=== PATIENT | male | born 1955 | race Caucasian/White ===

== ENCOUNTER 2017-11-10 16:07 | Outpatient (CLI) | payer SELFPAY ==
[2016-01-14 21:42] VITALS: BP 138/88
--- NOTE | 2017-11-10 18:45 | Diagnostic Imaging Report ---
SHU DEWITT [facility] [address] [facility] [address] [id number] Report Submission Date: Nov 10, 2017 4:54:23 PM PADDING GLUER Patient Study Name: RAFAEL MCKEON Date: Nov 10, 2017 4:17:23 PM PADDING GLUER Modality Type: DX Gender: M Description: UPPER EXTREMITY : 59 Institution: [facility] Physician: SHU DEWITT Examination: Plain film left elbow History: LT ELBOW, PAIN AND SWELLING IN LEFT ELBOW X9 DAYS, PT UNSURE OF INJURY (Hx) Comparison exams: None provided Findings: 2 views of the left elbow demonstrate normal cortical margins. No fracture. No dislocation. Radial head is within normal limits. No joint effusion Impression: No acute osseous abnormality. Electronically signed on Nov 10, 2017 4:54:23 PM PADDING GLUER by: Tunde ALBERT
== END 2017-11-10 16:08 ==
LOC: RAD 16:07
PROVIDERS: ATTEND Family Medicine
DX: T14.8XXA Other injury of unspecified body region, initial encounter (principal); Y99.9 Unspecified external cause status
CPT/HCPCS: 73070

== ENCOUNTER 2018-03-30 08:57 | Emergency (ER) | payer SELFPAY ==
--- NOTE | 2018-03-30 10:01 | ED Physician Documentation ---
Lower Extremity Problem - HISTORIAN Historian: patient - HPI Stated Complaint: swelling and redness to distal Left foot Chief Complaint: Lower Extremity Problem Additional Information: exab recurrent infection lt foot leg. antibitocs reportedly resolve problem none for more than 3 months Location of Injury: L foot Onset: days ago (2-3) Timing: persistent since Duration: intermittent episodes (worse) Recent Injury: No (none) Where: home Severity: mild, moderate Quality: pain, swelling Exacerbated By: walking Relieved By: rest, positioning Associated Symptoms: denies: chest pain, shortness of breath, rapid heart rate - ROS CONST: denies: no problems MS/SKIN/LYMPH: none CVS/RESP: none GI/: none EYES/ENT: denies: problems with vision - PAST HX Past History: other (htn prev lt foot infection) Surgeries/Procedures: none Allergies/Adverse Reactions: Allergies Allergy/AdvReac Type Severity Reaction Status Date / Time No Known Allergies Allergy Verified 03/30/18 09:53 Home Medications: Ambulatory Orders Medication Instructions Recorded Cephalexin [Keflex] 500 mg PO QID #40 capsule 03/30/18 - SOCIAL HX Smoking History: less than 1 pack/day Alcohol Use: none Drug Use: none - FAMILY HX Family History: no significant history - VITAL SIGNS Vital Signs: Vital Signs Temp Pulse Resp BP Pulse Ox 97.2 F L 65 18 171/109 99 03/30/18 08:57 03/30/18 08:57 03/30/18 08:57 03/30/18 08:57 03/30/18 08:57 - REVIEWED ASSESSMENTS Nursing Assessment Reviewed: Yes Vitals Reviewed: Yes Lower Extremity Problem - EXAM General Appearance: mild distress Foot: left foot: non-tender Neuro/Tendon: normal sensation, normal motor functions, no evidence tendon injury EENT: eye inspection normal RESPIRATORY: no resp distress, chest non-tender, breath sounds normal CVS: reg rate & rhythm, heart sounds normal JOINT: joints nml VASCULAR: pulses full/equal NEURO/PSYCH: oriented X3, motor nml, sensation nml, mood/affect nml SKIN: warm/dry. No: normal color (lt foot sig erythematous sl swelling) Discharge Clincal Impression: sepsis lt foot Prescriptions: Cephalexin [Keflex] 500 mg PO QID #40 capsule Referrals: Primary Doctor,No [Primary Care Provider] - 2 Days Condition: Good Disposition: 01 HOME, SELF-CARE Decision to Admit: NO Decision Time: 10:18
[2018-03-30 13:05] VITALS: BP 165/101
== END 2018-03-30 10:30 | disposition home or self-care (01) ==
LOC: ED 08:57
DX: A41.9 Sepsis, unspecified organism (principal); L08.9 Local infection of the skin and subcutaneous tissue, unspecified
CPT/HCPCS: 99282